=== PATIENT | female | born 2005 | race Caucasian/White ===

== ENCOUNTER 2024-11-02 17:48 | Emergency (ER) | payer OTHER ==
[2024-11-02] MEDS ORDERED: Acetaminophen 500 MG TAB ONE (19:23)
[2024-11-02] MEDS ORDERED: Ketorolac Tromethamine 30 MG (1 mL) VIAL ONE (20:25)
== END 2024-11-02 20:49 | disposition home or self-care (01) ==
LOC: CSHERS 17:48
DX: S80.02XA Contusion of left knee, initial encounter (principal); S50.01XA Contusion of right elbow, initial encounter; V43.52XA Car driver injured in collision with other type car in traffic accident, initial encounter
CPT/HCPCS: 71045; J1885